=== PATIENT | male | born 1950 | race Asian ===

== ENCOUNTER 2016-09-10 13:43 | Outpatient (CLI) | payer OTHER ==
[2016-09-10] MEDS ORDERED: OMEPRAZOLE20 M2 PO (15:18)
[2016-09-10] MEDS ORDERED: IRON325 MG PO (15:22)
[2016-09-10] MEDS ORDERED: FINA5TAB2 PO (15:23)
[2016-09-10] MEDS ORDERED: FURO40TA93 PO (15:23)
[2016-09-10] MEDS ORDERED: GLIM4TAB PO (15:25)
[2016-09-10] MEDS ORDERED: BENZTROPINE2 MG PO (15:26)
[2016-09-10] MEDS ORDERED: ONGLYZA5 MG PO (15:26)
[2016-09-10] MEDS ORDERED: METF100038 PO (15:27)
[2016-09-10] MEDS ORDERED: SPIR50TA8 PO (15:28)
[2016-09-10] MEDS ORDERED: RISP1TAB PO (15:28)
[2016-09-10] MEDS ORDERED: HYDR10TA51 PO (15:29)
[2016-09-10] MEDS ORDERED: LORA1TAB17 PO (15:29)
[2016-09-10] MEDS ORDERED: DOCU100C10 PO (15:30)
[2016-09-10] MEDS ORDERED: TAMS0.4C PO (15:30)
[2016-09-10] MEDS ORDERED: CYCL10TA35 PO (15:31)
== END 2016-09-10 14:23 | disposition short-term general hospital (02) ==
LOC: AMB 13:43
DX: F03.91 Unspecified dementia, unspecified severity, with behavioral disturbance (principal)
CPT/HCPCS: A0425; A0428